=== PATIENT | female | born 1980 | race Caucasian/White ===

== ENCOUNTER 2020-02-03 17:20 | Emergency (ER) | payer OTHER, SELFPAY ==
[2020-02-03 17:22] VITALS: BP 115/76; PULSE 81; RESP 15; TEMP 37.1; O2SAT 97; BMI 22.4
--- NOTE | 2020-02-03 18:33 | US_ITS ---
STUDY: VENOUS DOPPLER ULTRASOUND - RIGHT LOWER EXTREMITY REASON FOR EXAM: Female, 39 years old. RT CALF PAIN MEDIAL TECHNIQUE: Ultrasound evaluation of the deep vein system to include orourke-scale imaging and compression was performed. Orourke-scale imaging and Doppler sonographic evaluation, including duplex spectral analysis and qualitative color flow sonography, was performed. COMPARISON: None. FINDINGS: Common Femoral Vein: Normal compression, spontaneity and augmentation. Normal color Doppler. Common Femoral Vein/Greater Saphenous Junction: Normal compression. Deep Femoral Vein: Not assessed. Femoral Proximal: Normal compression. Femoral Middle: Normal compression, spontaneity and augmentation. Normal color Doppler. Femoral Distal: Normal compression. Popliteal Vein: Normal compression, spontaneity and augmentation. Normal color Doppler. Posterior Tibial Vein: Normal compression. Peroneal Vein: Normal compression. There is no demonstrated deep venous thrombosis. US/Venous Duplex Imag/Limited/Uni IMPRESSION: No evidence for DVT. Electronically Signed: Mj Bentley, at 19:33 EDT Tel , Service support ,
--- NOTE | 2020-02-03 20:02 | ED.DCSUM_ITS ---
- ER Visit Summary Date of Service: 02/03/20 Chief Complaint: [Pain to right leg] History of Present Illness: The patient is a 39 F [presents the emergency department with pain in her right leg and calf. Patient was skiing last week in [place] and they had a [address] Patient did do a lot of skiing and states that at one point her right knee swelled up. 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 Patient had been on Coumadin for 6 months and then was taken off. Denies any chest pain or shortness of breath. Patient has no difficulty ambulating. She denies any bony trauma. She has had prior surgery on her right knee.] Physical Examination: [HEENT-PERRLA, EOMI. Cranial nerves II through XII grossly intact. TMs clear. Mucous membranes moist. No adenopathy. Cardiovascular-regular rate and rhythm without murmur or ectopy Lungs-clear to auscultation, chest wall stable without crepitus or subcu emphysema Abdomen-normoactive bowel sounds, soft, nontender, no rebound or rigidity, no peritoneal signs. Extremities-intact ?4, normal range of motion, normal pulses, atraumatic. Right knee-no effusion noted. Ligamentously stable. Patient does have some diffuse tenderness about the right calf. No ropes or cords palpated. She is neurovascular intact distally.] Test Results: [Venous duplex was negative for DVT] Emergency Department Course and Treatment: [Patient did not want crutches or David wrap.] Treatment Plan: [Follow-up with primary care physician in 5 to 7 days. Patient use ibuprofen or Tylenol for discomfort.] Disposition: [Discharged home in stable condition.] Impression: [Right knee sprain-possible internal derangement] This note was generated with [employer] dictation software. It may contain incorrect words, spelling, and punctuation that were not noted in review of the chart prior to signing ED Disposition - Plan for ED Patient: Referrals: Livia Holbrook MD [Primary Care Provider] -
--- NOTE | 2020-02-03 20:04 | ED.DEP ---
ED Disposition - Plan for ED Patient: Instructions: KNEE PAIN, Meniscus Injury (Possible) Referrals: Livia Holbrook MD [Primary Care Provider] - 5-7 Days
[2020-02-03 20:12] VITALS: RESP 16
--- NOTE | 2020-02-03 20:13 | ED.RN ---
REVIEWED D/C INSTRUCTIONS, FOLLOW UP CARE, AND S/S THAT WOULD WARRANT A RETURN TO THE ED WITH PT. PT VERBALIZED AN UNDERSTANDING AN UNDERSTANDING AND DENIES FURTHER QUESTIONS FOR THIS RN. PT SKIN WARM/DRY, RESP EVEN AND UNLABORED, PT A&O X 3, NO DISTRESS NOTED. PT AMBULATED OUT OF ED, GAIT STEADY.
== END 2020-02-03 20:14 | disposition home or self-care (01) ==
PROVIDERS: Emergency Provider Emergency Medicine; PCP Internal Medicine
DX: S83.91XA Sprain of unspecified site of right knee, initial encounter (principal); Z86.718 Personal history of other venous thrombosis and embolism; X58.XXXA Exposure to other specified factors, initial encounter; Y93.23 Activity, snow (alpine) (downhill) skiing, snowboarding, sledding, tobogganing and snow tubing; Y92.828 Other wilderness area as the place of occurrence of the external cause; Y99.8 Other external cause status
CPT/HCPCS: 93971; 99282